=== PATIENT | male | born 1985 | race Two or more races ===

== ENCOUNTER 2018-05-21 20:59 | Emergency (ER) | payer SELFPAY ==
[~2018-05-21] VITALS: Ht 167.6 cm; Wt 83.9 kg
[2018-05-21 21:08] VITALS: BP 177/106
--- NOTE | 2018-05-21 21:23 | PHYS DOC ---
Past Medical History Past Medical History: Asthma, Hypertension Past Surgical History: No Surgical History Additional Information: 2 CIGARETTES PER DAY Alcohol Use: Occasionally Drug Use: None Adult General Chief Complaint Chief Complaint: HAND PROBLEM HPI HPI Patient is a 33 year old male who presents with pain and swelling to the right hand. The patient states that he had what he calls spider bite on his right forearm approximately one week ago. That bite has now healed but he is still having swelling to the hand. He has bruising to the bottom of his hand but denies known injury. He denies fever, nausea or vomiting. He denies any other injury. Review of Systems Review of Systems Constitutional: Denies fever or chills [] Respiratory: Denies cough or shortness of breath [] Cardiovascular: No additional information not addressed in HPI [] GI: Denies abdominal pain, nausea, vomiting, bloody stools or diarrhea [] : Denies dysuria or hematuria [] Musculoskeletal: See history of present illness Integument: See history of present illness Neurologic: Denies headache, focal weakness or sensory changes [] Endocrine: Denies polyuria or polydipsia [] All other systems were reviewed and found to be within normal limits, except as documented in this note. Allergies Allergies Allergies Coded Allergies Type Severity Reaction Last Updated Verified Penicillins Allergy Intermediate EYES SWELLING 05/21/18 Yes Physical Exam Physical Exam Constitutional: Well developed, well nourished, no acute distress, non-toxic appearance. [] Cardiovascular:Heart rate regular rhythm, no murmur [] Lungs & Thorax: Bilateral breath sounds clear to auscultation [] Abdomen: Bowel sounds normal, soft, no tenderness, no masses, no pulsatile masses. [] Skin: 0.5 cm pink healing lesion noted to right forearm Back: No tenderness, no CVA tenderness. [] Extremities: Mild edema to right hand with no calor or erythema, range of motion is intact, 2 cm in diameter bruise noted to the palmar aspect of the right hand over the third metacarpal, no gross deformity noted Neurologic: Alert and oriented X 3, normal motor function, normal sensory function, no focal deficits noted. [] Psychologic: Affect normal, judgement normal, mood normal. [] Current Patient Data Vital Signs Vital Signs Date Time Temp Pulse Resp B/P (MAP) Pulse Ox O2 Delivery O2 Flow Rate FiO2 05/21/18 21:08 98.5 98 16 177/106 (129) 98 Room Air 98.5 EKG EKG [] Radiology/Procedures Radiology/Procedures [] Course & Med Decision Making Course & Med Decision Making Pertinent Labs and Imaging studies reviewed. (See chart for details) [] Dragon Disclaimer Dragon Disclaimer This electronic medical record was generated, in whole or in part, using a voice recognition dictation system. Departure Departure Impression: Primary Impression: Metacarpal bone fracture Disposition: HOME, SELF-CARE Condition: STABLE Referrals: PHILL BOWMAN MD Patient Instructions: Hand Fracture, RICE - Routine Care for Injuries Additional Instructions: RICE the extremity. Follow-up with orthopedics for reevaluation of your hand injury. If worsening return to the emergency department. LUCINA ANDRE APRN May 21, 2018 21:23
--- NOTE | 2018-05-21 22:31 | RAD ---
Indication: Right hand swelling. TECHNIQUE: 3 views of the right hand COMPARISON: None FINDINGS: No acute fracture or dislocation. No arthritic changes. No soft tissue abnormality. IMPRESSION: No acute findings. Electronically signed by: Sonido Angelo DO (05/21/2018 10:28 PM) [facility]
== END 2018-05-21 22:46 | disposition home or self-care (01) ==
LOC: ER 20:59
DX: S62.302A Unspecified fracture of third metacarpal bone, right hand, initial encounter for closed fracture (principal); J45.909 Unspecified asthma, uncomplicated; I10 Essential (primary) hypertension; F17.210 Nicotine dependence, cigarettes, uncomplicated; Z88.0 Allergy status to penicillin; X58.XXXA Exposure to other specified factors, initial encounter; Y93.89 Activity, other specified; Y92.89 Other specified places as the place of occurrence of the external cause; Y99.8 Other external cause status
CPT/HCPCS: 73130; 99284